=== PATIENT | female | born 1995 | race Caucasian/White ===

== ENCOUNTER 2016-08-20 16:00 | Emergency (ER) | payer OTHER ==
[~2016-08-20] VITALS: Ht 152.4 cm; Wt 70.5 kg
[2016-08-20 16:03] VITALS: BP 116/77; PULSE 80; RESP 16; TEMP 98; O2SAT 97
--- NOTE | 2016-08-20 16:56 | PD ---
Physical Exam Time Seen by Provider: 16:55 Narrative 21 year old female with history of anxiety presents to ED for evaluation of R foot pain. Pt fridge fell onto foot. Foot is now numb. Unable to walk on foot. No other symptoms. Data Data Last Documented VS Vital Signs Date Time Temp Pulse Resp B/P Pulse Ox O2 Delivery O2 Flow Rate FiO2 08/20/16 16:03 98.0 80 16 116/77 97 Room Air Orders Foot, Complete ([id number]) (08/20/16 ) Crutches (08/20/16 18:39) Splint Or Brace Apply/Monitor (08/20/16 18:39) MDM Medical Record Reviewed: Yes Supervised Visit with FREDY: No Narrative Course Xray ordered in triage. Foot neurovascularly intact. Scripts Ibuprofen 800 Mg [id number] Mg PO Q6HR PRN (PAIN) #30 TAB Ref 0 Prov:Nicole Schaefer 08/20/16 Condition: Stable Isabel Marie Aug 20, 2016 16:56
--- NOTE | 2016-08-20 17:27 | RADRPT ---
EXAM DATE/TIME: 08/20/2016 17:08 [facility] COMPARISON: No previous studies available for comparison. INDICATIONS : Right foot numbness after dropping heavy object on foot. MEDICAL HISTORY : None. SURGICAL HISTORY : None. ENCOUNTER: Initial ACUITY: 4 - 6 days PAIN SCORE: 0/10 LOCATION: Right middle foot. FINDINGS: Three view examination of the right foot demonstrates no soft tissue swelling, dislocation, or fractu re. The tarsal bones appear intact. The interphalangeal and metatarsophalangeal joints are intact. The calcaneus is intact. Bony mineralization is normal. CONCLUSION: No acute fracture or dislocation. Gordo Garcia MD on August 20, 2016 at 17:25 Board Certified Radiologist. This report was verified electronically.
[2016-08-20] MEDS ORDERED: IBUP800T23 PO (18:41)
--- NOTE | 2016-08-20 18:43 | PD ---
HPI Chief Complaint: Injury Time Seen by Provider: 18:40 Travel History International Travel<30 days: No Contact w/Intl Traveler<30days: No Traveled to known affect area: No History of Present Illness HPI 21-year-old female presents to the emergency Department with complaint of not being able to feel the toes on her right foot after a small for age fall on her foot approximately 1:30 today. She denies pain to the foot and says that maybe she doesn't have pain she can't feel it. She has not taken any medications or treatments to relieve her symptoms. She has been ambulatory, walking on the heel of her foot. Denies decreased range of motion, decreased strength to affected extremity. Denies fever, chills, nausea, vomiting. Allergies to sulfa. History of asthma. No other modifying factors or associated signs and symptoms. PFSH Past Medical History Asthma: Yes ?: Not Social History Tobacco Use: No Allergies-Medications (Allergen,Severity, Reaction): Coded Allergies: Sulfa (Verified Allergy, Unknown, HIVES, 08/20/16) Reported Meds & Prescriptions Reported Meds & Active Scripts Active Ibuprofen 800 Mg Tab 800 Mg PO Q6HR PRN Reported Lexapro (Escitalopram Oxalate) 20 Mg Tab 20 Mg PO DAILY Clonazepam 1 Mg Tab 1 Mg PO TID Review of Systems Except as stated in HPI: all other systems reviewed are Neg Physical Exam Narrative GENERAL: Well-nourished, well-developed female patient, in no acute distress SKIN: Warm and dry. HEAD: Atraumatic. Normocephalic. EYES: Pupils equal and round. No scleral icterus. No injection or drainage. ENT: Mucosa pink and moist. Airway patent. NECK: Trachea midline. CARDIOVASCULAR: Regular rate. RESPIRATORY: No accessory muscle use. GASTROINTESTINAL: Rounded. MUSCULOSKELETAL: Right foot without edema or obvious deformity; there is a bruise noted below the second, third, fourth, fifth toes; the patient is unable to feel light sensation or pain to all 5 toes; less than 3 second cap refill; distal pulses palpable; toes are cool to touch and pink; without cyanosis. Sensation to the dorsal aspect of the foot just above the line of the bruise. No obvious deformities. No clubbing. No cyanosis. No edema. NEUROLOGICAL: Awake and alert. Oriented 3. No obvious cranial nerve deficits. Motor grossly within normal limits. Normal speech. PSYCHIATRIC: Appropriate mood and affect; insight and judgment normal. Data Data Last Documented VS Vital Signs Date Time Temp Pulse Resp B/P Pulse Ox O2 Delivery O2 Flow Rate FiO2 08/20/16 16:03 98.0 80 16 116/77 97 Room Air Orders Foot, Complete ([id number]) (08/20/16 ) Crutches (08/20/16 18:39) Splint Or Brace Apply/Monitor (08/20/16 18:39) MDM Medical Decision Making Medical Screen Exam Complete: Yes Emergency Medical Condition: Yes Medical Record Reviewed: Yes Differential Diagnosis Facture, dislocation, contusion, sprain Narrative Course 21-year-old female with right foot injury after dropping a small fridge on it at approximately 1:30 today. Right foot x-ray concludes no fracture or dislocation and no acute findings. On examination the patient is unable to feel light sensation or painful sensation to all 5 toes. Toes are pink and cool to touch, with good cap refill less than 3 seconds; without cyanosis, 2+ pedal pulses. 1849: Callout to podiatry placed. 1907: I spoke with Dr. Lopez, podiatry and he recommended for the patient to use her foot with the sensation loss and to follow-up with him in his office within two weeks. Crutches provided for support. Saturnino bandage applied. I instructed the patient to continue to use her foot for support, per Dr. Lopez , and she verbalized understanding and agreement to plan of care. Ibuprofen prescribed for home. Patient is medically cleared and stable for discharge. Discussed reasons to return to the emergency department. Instructed patient to follow up with primary care provider. Patient agrees with treatment plan. The patients vital signs are stable and the patient is stable for outpatient follow- up and treatment. Patient discharged home, stable and in no acute distress. Diagnosis Primary Impression: Contusion of right foot Qualified Code: S90.31XA - Contusion of right foot, initial encounter Referrals: Anatoliy Lopez DPP[facility] Primary Care Physician Patient Instructions: Contusion in Adults (ED), General Instructions Departure Forms: Tests/Procedures, Work Release Enter return to work date: Aug 21, 2016 Additional Instructions: Ibuprofen or Tylenol as directed and as needed for pain and inflammation Rest, ice, compress, and elevate extremity to decrease pain and inflammation Saturnino bandage for support Crutches for support Avoid aggravating activity; increase activity as tolerated Follow-up with primary care provider Follow-up with podiatry, Dr. Lopez Return to the emergency department immediately with worsening symptoms Med/Other Pt SpecificInfo: Prescription(s) given Scripts Ibuprofen 800 Mg Few128 Mg PO Q6HR PRN (PAIN) #30 TAB Ref 0 Prov:Nicole Schaefer 08/20/16 Disposition: 01 DISCHARGE HOME Condition: Stable Nicole Schaefer Aug 20, 2016 18:43
[2016-08-20] MEDS ORDERED: CLON1TAB PO (19:21)
[2016-08-20] MEDS ORDERED: LEXA20TA PO (19:21)
== END 2016-08-20 19:35 | disposition home or self-care (01) ==
LOC: NEPB 16:00
DX: S90.31XA Contusion of right foot, initial encounter (principal); J45.909 Unspecified asthma, uncomplicated; R20.0 Anesthesia of skin; W22.8XXA Striking against or struck by other objects, initial encounter; Y93.89 Activity, other specified; Y92.89 Other specified places as the place of occurrence of the external cause; Y99.8 Other external cause status
CPT/HCPCS: 73630; 99284; E0113

== ENCOUNTER 2016-08-27 10:30 | Emergency (ER) | payer OTHER ==
[~2016-08-27] VITALS: Ht 152.4 cm; Wt 73.0 kg
[~2016-08-27 10:30] MED LIST: CLON1TAB PO; IBUP800T23 PO; LEXA20TA PO
[2016-08-27 10:38] VITALS: BP 121/85; PULSE 75; RESP 16; TEMP 98.2; O2SAT 99
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
[2016-08-27] MEDS ORDERED: TETANUS/DIPHTHERIA TOXOID ADULT 0.5 ML VIAL IM ONE (11:00)
== END 2016-08-27 11:13 | disposition home or self-care (01) ==
LOC: PHEFT 10:30
DX: S51.802A Unspecified open wound of left forearm, initial encounter (principal); Z23 Encounter for immunization; W50.3XXA Accidental bite by another person, initial encounter; Y93.9 Activity, unspecified; Y92.9 Unspecified place or not applicable; Y99.9 Unspecified external cause status
CPT/HCPCS: 90471; 90714

== ENCOUNTER 2016-09-21 14:51 | Emergency (ER) | payer OTHER ==
[~2016-09-21] VITALS: Ht 152.4 cm; Wt 71.8 kg
[~2016-09-21 14:51] MED LIST changes: -IBUP800T23 PO
[2016-09-21 15:10] VITALS: BP 115/77; PULSE 65; RESP 16; TEMP 98.5; O2SAT 99
[2016-09-21 15:44] LABS: BLOOD, URINE NEG (NEG); GLUCOSE,URINE NEG (NEG); KETONE, URINE NEG (NEG); NITRITE,URINE NEG (NEG)
[2016-09-21 15:50] LABS: METHOD OF COLLECTION CLEAN CATCH; URINE COLOR STRAW (YELLW/STRAW)
[2016-09-21 15:51] LABS: COMMENT (UR) CULT NOT INDICATED; CULTURE IF INDICATED CULT NOT INDICATED; SQUAMOUS EPITHELIAL CELL URINE 0-5 /hpf (0-5)
[2016-09-21] MEDS ORDERED: SODIUM CHLOR 0.9% 1000 ML INJ 1,000 ML IV SCH (16:08)
[2016-09-21] MEDS ORDERED: SODIUM CHLORIDE 0.9% FLUSH 5 ML FLUSH IVF PRN (16:15)
[2016-09-21] MEDS ORDERED: KETOROLAC TROMETHAMINE 30 MG/ML (IVP) VIAL IVP ONE (16:15)
[2016-09-21] MEDS ORDERED: ONDANSETRON HCL 4 MG/2 ML VIAL IVP ONE (16:15)
--- NOTE | 2016-09-21 16:15 | PD ---
HPI Chief Complaint: Flank/Kidney Pain Time Seen by Provider: 16:12 Travel History International Travel<30 days: No Contact w/Intl Traveler<30days: No Traveled to known affect area: No History of Present Illness HPI 21-year-old female presents to the emergency department for evaluation of low back pain that started 1 week ago. She states it now radiates to the left abdomen. She reports associated nausea, but no vomiting. She states she has been taking Tylenol at home with no improvement. She denies any fevers. She does report associated dizziness. Patient denies any urinary symptoms. She denies any history of abdominal pain. She denies any previous abdominal surgeries. Patient does not believe she is , but is not completely sure. She denies any abnormal vaginal discharge. She reports one sexual partner for the past 6 years. Patient denies a history of kidney stones. She does state that the back pain is worse with movement, but not the abdominal pain. PFSH Past Medical History Asthma: Yes Anxiety: Yes Depression: Yes Diminished Hearing: No Respiratory: Yes (asthma) Influenza Vaccination: No ?: Not LMP: 08/08/16, IRREGULAR Past Surgical History Eye Surgery: Yes (BILATERAL, 3 YEARS OF AGE) Social History Alcohol Use: No Tobacco Use: No Substance Use: No Allergies-Medications (Allergen,Severity, Reaction): Coded Allergies: Sulfa (Verified Allergy, Unknown, HIVES, 09/21/16) Reported Meds & Prescriptions Reported Meds & Active Scripts Active Reported Lexapro (Escitalopram Oxalate) 20 Mg Tab 20 Mg PO DAILY Clonazepam 1 Mg Tab 1 Mg PO TID Review of Systems Except as stated in HPI: all other systems reviewed are Neg Physical Exam Narrative GENERAL: Well-developed well-nourished female patient, ambulatory. Afebrile. SKIN: Warm and dry. HEAD: Normocephalic. Atraumatic. EYES: No scleral icterus. No injection or drainage. NECK: Supple, trachea midline. No JVD or lymphadenopathy. CARDIOVASCULAR: Regular rate and rhythm without murmurs, gallops, or rubs. RESPIRATORY: Breath sounds equal bilaterally. No accessory muscle use. Lungs sounds are clear to auscultation. GASTROINTESTINAL: Abdomen soft and nondistended. Patient has tenderness over left lower quadrant, mild tenderness over suprapubic and right lower quadrants. MUSCULOSKELETAL: No cyanosis, or edema. BACK: Nontender without obvious deformity. No CVA tenderness. No midline spinal tenderness. She has tenderness over bilateral lumbar paraspinal musculature. GENITOURINARY: Normal external genitalia without lesions or erythema. Vaginal vault without blood or drainage. Cervical os was closed with minimal white drainage. Patient did report cervical motion tenderness. Uterus nontender and nonenlarged. Bilateral adnexa nontender without masses. Pelvic exam was done with nurse at bedside. Data Data Last Documented VS Vital Signs Date Time Temp Pulse Resp B/P Pulse Ox O2 Delivery O2 Flow Rate FiO2 09/21/16 17:41 16 09/21/16 16:41 98 Room Air 09/21/16 16:41 62 109/69 09/21/16 15:10 98.5 Orders Urinalysis - C+S If Indicated (09/21/16 15:01) Ed Urine Pregnancytest Poc (09/21/16 15:01) Complete Blood Count With Diff (09/21/16 16:08) Comprehensive Metabolic Panel (09/21/16 16:08) Lipase (09/21/16 16:08) Ct Abd/Pel W/O Iv Contrast (09/21/16 16:08) Iv Access Insert/Monitor (09/21/16 16:08) Ecg Monitoring (09/21/16 16:08) Oximetry (09/21/16 16:08) Ondansetron Inj (Zofran Inj) (09/21/16 16:15) Sodium Chlor 0.9% 1000 Ml Inj (Ns 1000 M (09/21/16 16:08) Sodium Chloride 0.9% Flush (Ns Flush) (09/21/16 16:15) Ketorolac Inj (Toradol Inj) (09/21/16 16:15) Gc And Chlamydia Pcr (09/21/16 16:08) Wet Prep Profile (09/21/16 16:08) Azithromycin Powd Pack (Zithromax Powd P (09/21/16 17:45) Ceftriaxone Inj (Rocephin Inj) (09/21/16 17:45) Lidocaine 1% Inj (50 Ml) (Xylocaine 1% I (09/21/16 17:45) Labs Laboratory Tests Test 09/21/16 09/21/16 09/21/16 15:15 16:35 17:35 Urine Collection Type CLEAN CATCH Urine Color STRAW Urine Turbidity CLEAR Urine pH 6.0 Urine Specific [place] 1.003 Urine Protein NEG mg/dL Urine Glucose (UA) NEG mg/dL Urine Ketones NEG mg/dL Urine Occult Blood NEG Urine Nitrite NEG Urine Bilirubin NEG Urine Leukocyte Esterase NEG Urine Squamous Epithelial 0-5 /hpf Cells Microscopic Urinalysis Comment CULT NOT INDICATED White Blood Count 8.5 TH/MM3 Red Blood Count 4.72 MIL/MM3 Hemoglobin 13.9 GM/DL Hematocrit 39.9 % Mean Corpuscular Volume 84.6 FL Mean Corpuscular Hemoglobin 29.4 PG Mean Corpuscular Hemoglobin 34.8 % Concent Red Cell Distribution Width 12.6 % Platelet Count 241 TH/MM3 Mean Platelet Volume 8.3 FL Neutrophils (%) (Auto) 64.5 % Lymphocytes (%) (Auto) 27.4 % Monocytes (%) (Auto) 5.9 % Eosinophils (%) (Auto) 1.8 % Basophils (%) (Auto) 0.4 % Neutrophils # (Auto) 5.5 TH/MM3 Lymphocytes # (Auto) 2.3 TH/MM3 Monocytes # (Auto) 0.5 TH/MM3 Eosinophils # (Auto) 0.2 TH/MM3 Basophils # (Auto) 0.0 TH/MM3 CBC Comment DIFF FINAL Differential Comment Sodium Level 140 MEQ/L Potassium Level 3.8 MEQ/L Chloride Level 102 MEQ/L Carbon Dioxide Level 30.2 MEQ/L Anion Gap 8 MEQ/L Blood Urea Nitrogen 6 MG/DL Creatinine 0.67 MG/DL Estimat Glomerular Filtration 110 ML/MIN Rate Random Glucose 82 MG/DL Calcium Level 9.6 MG/DL Total Bilirubin 0.5 MG/DL Aspartate Amino Transf 14 U/L (AST/SGOT) Alanine Aminotransferase 24 U/L (ALT/SGPT) Alkaline Phosphatase 78 U/L Total Protein 7.4 GM/DL Albumin 3.7 GM/DL Lipase 90 U/L Clue Cells (Wet Prep) NONE SEEN Vaginal Trichomonas (Wet Prep) NONE SEEN Vaginal Yeast (Wet Prep) NONE SEEN MDM Medical Decision Making Medical Screen Exam Complete: Yes Emergency Medical Condition: Yes Medical Record Reviewed: Yes Interpretation(s) Last Impressions Abdomen/Pelvis CT 09/21/16 1608 Signed Impressions: Service Date/Time: Wednesday, September 21, 2016 16:17 - CONCLUSION: 1. No acute findings. Specifically no evidence for obstructive uropathy. Aric Barajas MD Differential Diagnosis Muscle strain versus muscle spasm versus nephrolithiasis versus diverticulitis versus PID versus UTI versus Narrative Course 21-year-old female presents to the emergency department treatment for evaluation of low back pain for 1 week that radiates to the left abdomen. UA and urine are done in triage. UA shows no evidence of acute infection. ED urine test is negative. CBC, CMP, lipase, wet prep, swab for GC/chlamydia are ordered and pending. CBC is unremarkable. CMP shows no acute abnormality. Lipase is 90. CT abdomen /pelvis shows no acute findings. Pelvic exam did show some cervical motion tenderness. I discussed prophylactic treatment for chlamydia and gonorrhea patient agrees. Patient is given Rocephin 250 mg IM, azithromycin 1 g by mouth. Wet prep is negative for clue cells, Trichomonas, yeast. Patient will be discharged with a prescription for ibuprofen and Robaxin for possible muscle strain to the low back. She is encouraged to follow up with her primary care physician. Workup today is reassuring. Patient started to return for any acute worsening of symptoms. She is agreeable. The patient was discharged in stable condition with instructions, including return instructions and follow up instructions. Diagnosis Primary Impression: Abdominal pain Qualified Code: R10.30 - Lower abdominal pain Additional Impression: Muscle strain Referrals: Primary Care Physician call for appointment Patient Instructions: Abdominal Pain (ED), General Instructions, Muscle Strain (ED) Additional Instructions: Take ibuprofen as directed as needed with food for pain. Take Robaxin as directed as needed. Follow-up with your primary care physician. Return to the emergency department for any acute worsening of symptoms. Med/Other Pt SpecificInfo: Prescription(s) given Scripts Methocarbamol (Robaxin)750 Mg [id number] Mg PO TID PRN (MUSCLE SPASM) #21 TAB Ref 0 Prov:Saba Kennedy 09/21/16 Ibuprofen 800 Mg [id number] Mg PO TID PRN (PAIN SCALE 1 TO 10) #21 TAB Ref 0 Prov:Saba Kennedy 09/21/16 Disposition: 01 DISCHARGE HOME Condition: Stable Saba Kennedy Sep 21, 2016 16:15
[2016-09-21 16:41] VITALS: BP 109/69; PULSE 62; RESP 16; O2SAT 98
--- NOTE | 2016-09-21 16:47 | RADHPO ---
EXAM DATE/TIME: 09/21/2016 16:17 [facility] COMPARISON: No previous studies available for comparison. INDICATIONS : Left flank pain for one week. ORAL CONTRAST: No oral contrast ingested. RADIATION DOSE: 14.03 CTDIvol (mGy) MEDICAL HISTORY : None SURGICAL HISTORY : None. ENCOUNTER: Initial ACUITY: 1 week PAIN SCALE: 7/10 LOCATION: Left flank TECHNIQUE: Volumetric scanning of the abdomen and pelvis was performed. Using automated exposure control and ad justment of the mA and/or kV according to patient size, radiation dose was kept as low as reasonably achievable to obtain optimal diagnostic quality images. FINDINGS: Lung bases are clear. No acute findings in the liver, spleen, adrenals, kidneys or pancreas. Specific ally no renal or ureteral calculi or obstructive uropathy. No bowel obstruction. No free air or free fluid. No adenopathy. No acute bony abnormalities. CONCLUSION: 1. No acute findings. Specifically no evidence for obstructive uropathy. Aric Barajas MD on September 21, 2016 at 16:41 Board Certified Radiologist. This report was verified electronically.
[2016-09-21 17:00] LABS: AUTOMATED NEUTROPHIL # 5.5 TH/MM3 (1.8-7.7); BASOPHIL % 0.4 % (0.0-2.0); EOSINOPHIL # 0.2 TH/MM3 (0-0.4); EOSINOPHIL % 1.8 % (0.0-4.0); HEMATOCRIT 39.9 % (35.0-46.0); HEMO FLAGS DIFF FINAL; LYMPH % 27.4 % (9.0-44.0); LYMPHOCYTE # 2.3 TH/MM3 (1.0-4.8); MEAN CELL VOLUME 84.6 FL (80.0-100.0); MEAN CORPUSCULAR HEMOGLOBIN 29.4 PG (27.0-34.0); MEAN CORPUSCULAR HGB CONC 34.8 % (32.0-36.0); MONO % 5.9 % (0.0-8.0); NEUT % 64.5 % (16.0-70.0); PLATELET COUNT 241 TH/MM3 (150-450); RED BLOOD COUNT 4.72 MIL/MM3 (4.00-5.30); RED CELL DISTRIBUTION WIDTH 12.6 % (11.6-17.2); WHITE BLOOD COUNT 8.5 TH/MM3 (4.0-11.0)
[2016-09-21 17:09] LABS: CHLORIDE 102 MEQ/L (98-107); POTASSIUM 3.8 MEQ/L (3.5-5.1); SODIUM (NA) 140 MEQ/L (136-145)
[2016-09-21 17:13] LABS: ANION GAP 8 MEQ/L (5-15); BICARBONATE 30.2 MEQ/L (21.0-32.0); BLOOD UREA NITROGEN 6 MG/DL (7-18)
[2016-09-21 17:16] LABS: ALT (GPT) 24 U/L (10-53); AST (GOT) 14 U/L (15-37); GLOMERULAR FILTRATION RATE 110 ML/MIN (>89)
[2016-09-21 17:18] LABS: TOTAL BILIRUBIN ADULT 0.5 MG/DL (0.2-1.0)
[2016-09-21 17:19] LABS: ALKALINE PHOSPHATASE 78 U/L (45-117)
[2016-09-21 17:41] VITALS: RESP 16
[2016-09-21] MEDS ORDERED: cefTRIAXone 250 MG VIAL IM ONE (17:45)
[2016-09-21] MEDS ORDERED: AZITHROMYCIN PWD FOR SUSP 1 GM PACKET PO ONE (17:45)
[2016-09-21] MEDS ORDERED: LIDOCAINE HCL 1% 50 ML VIAL IM ONE (17:45)
[2016-09-21] MEDS ORDERED: METHOCARBAMOL 500 MG TAB PO ONE (18:00)
[2016-09-21] MEDS ORDERED: IBUP800T23 PO (18:01)
[2016-09-21] MEDS ORDERED: ROBA750T PO (18:01)
[2016-09-21 18:34] VITALS: BP 113/74
[2016-09-21 22:01] LABS: CHLAMYDIA PCR NOT DETECTED (NOT DETECT); NEISSERIA PCR NOT DETECTED (NOT DETECT)
== END 2016-09-21 18:45 | disposition home or self-care (01) ==
LOC: PHED 14:51
DX: R10.30 Lower abdominal pain, unspecified (principal); M54.5 Low back pain; R42 Dizziness and giddiness
CPT/HCPCS: 74176; 80053; 81001; 83690; 84703; 85025; 87210; 87491; 87591; 96361; 96372; 96374; 96375; 99284; J0696; J1885; J2405; J7030

== ENCOUNTER 2016-11-10 22:49 | Emergency (ER) | payer OTHER ==
[~2016-11-10] VITALS: Ht 157.5 cm; Wt 74.4 kg
[~2016-11-10 22:49] MED LIST changes: +IBUP800T23 PO; +ROBA750T PO
[2016-11-10 22:58] VITALS: BP 117/84; PULSE 71; RESP 16; TEMP 98.2; O2SAT 97
[2016-11-10] MEDS ORDERED: clonazePAM 1 MG TAB PO ONE (23:15)
--- NOTE | 2016-11-10 23:20 | PD ---
HPI Chief Complaint: Anxiety Time Seen by Provider: 23:05 Travel History International Travel<30 days: No Contact w/Intl Traveler<30days: No History of Present Illness HPI Patient is a 21-year-old female with history of anxiety, presents to emergency room with complaints of anxiety attack. Patient reports that she takes Klonopin 1 mg 3 times a day for anxiety, reports that she felt sick last night as well as morning and threw up her last dose of her Klonopin. Patient reports that she has since run out of her Klonopin, she did call her physician and has a prescription at [facility] pharmacy pending - reports that the pharmacy closed 10 minutes after she showed up to [place] picker her script. She did call her primary care doctor who told her to come to the emergency room for a dose of Klonopin tonight. Patient reports that she will go to the pharmacy tomorrow morning to [place]anish [place] picker her prescription. Patient reports that her anxiety is some which are previous episodes, reports "i just need a dose of my medication." Denies fevers or chills, denies chest pain or shortness of breath. Denies suicidal or homicidal ideations. Patient denies nausea or vomiting or abdominal pain at this time. PFSH Past Medical History Asthma: Yes Anxiety: Yes Depression: Yes Diminished Hearing: No Respiratory: Yes (asthma) Past Surgical History Eye Surgery: Yes (BILATERAL, 3 YEARS OF AGE) Social History Alcohol Use: No Tobacco Use: No Substance Use: No Allergies-Medications (Allergen,Severity, Reaction): Coded Allergies: Sulfa (Verified Allergy, Unknown, HIVES, 09/21/16) Reported Meds & Prescriptions Reported Meds & Active Scripts Active Robaxin (Methocarbamol) 750 Mg Tab 750 Mg PO TID PRN Ibuprofen 800 Mg Tab 800 Mg PO TID PRN Reported Lexapro (Escitalopram Oxalate) 20 Mg Tab 20 Mg PO DAILY Clonazepam 1 Mg Tab 1 Mg PO TID Review of Systems General / Constitutional: No: Fever Eyes: No: Visual changes HENT: No: Headaches Cardiovascular: No: Chest Pain or Discomfort Respiratory: No: Shortness of Breath Gastrointestinal: No: Abdominal Pain Genitourinary: No: Dysuria Musculoskeletal: No: Pain Skin: No Rash Neurologic: No: Weakness Psychiatric: Positive: Anxiety, No: Depression Endocrine: No: Polydipsia Hematologic/Lymphatic: No: Easy Bruising Physical Exam Narrative GENERAL: No acute distress, nontoxic SKIN: Focused skin assessment warm/dry. HEAD: Atraumatic. Normocephalic. EYES: Pupils equal and round. No scleral icterus. No injection or drainage. ENT: No nasal bleeding or discharge. Mucous membranes pink and moist. NECK: Trachea midline. No JVD. CARDIOVASCULAR: Regular rate and rhythm. No murmur appreciated. RESPIRATORY: No accessory muscle use. Clear to auscultation. Breath sounds equal bilaterally. GASTROINTESTINAL: Abdomen soft, non-tender, nondistended. MUSCULOSKELETAL: No obvious deformities. No clubbing. No cyanosis. No edema. NEUROLOGICAL: Awake and alert. No obvious cranial nerve deficits. Motor grossly within normal limits. Normal speech. PSYCHIATRIC: Patient anxious on exam; insight and judgment normal. Data Data Last Documented VS Vital Signs Date Time Temp Pulse Resp B/P Pulse Ox O2 Delivery O2 Flow Rate FiO2 11/10/16 22:58 98.2 71 16 117/84 97 Orders Clonazepam (Klonopin) (11/10/16 23:15) [facility] Medical Decision Making Medical Screen Exam Complete: Yes Emergency Medical Condition: Yes Interpretation(s) Vital Signs Date Time Temp Pulse Resp B/P Pulse Ox O2 Delivery O2 Flow Rate FiO2 11/10/16 22:58 98.2 71 16 117/84 97 Differential Diagnosis Medication refill, anxiety reaction Narrative Course 21-year-old female who presents to emergency room for a dose of her anxiety medication. Patient reports that she last took her Klonopin 1 mg this morning, reports that she felt nauseous and ended up vomiting up this dose, reports that she has run out of her prescription and her pharmacy close for the night and she was unable to spanish [place] picker her prescription. Patient denies nausea or vomiting tonight, reports that she was able to eat her dinner tonight and drink fluids. Patient here with a friend at bedside. Patient requesting one dose of Klonopin 1 mg, she'll spanish [place] picker her prescription tomorrow. Patient reports that her symptoms are normal for her anxiety attack. Patient denies suicidal or homicidal ideations, no other complaints. Diagnosis Primary Impression: Anxiety Patient Instructions: General Instructions Additional Instructions: Please follow-up with primary care doctor Return to the emergency room as needed Please spanish moss picker your script from [facility] pharmacy tomorrow and take your medications as prescribed Disposition: 01 DISCHARGE HOME Condition: Stable Alisha Mark DO Nov 10, 2016 23:20
[2016-11-11] VITALS: BP 108/72
== END 2016-11-11 00:05 | disposition home or self-care (01) ==
LOC: PHED 22:49
DX: F41.9 Anxiety disorder, unspecified (principal); J45.909 Unspecified asthma, uncomplicated; F32.9 Major depressive disorder, single episode, unspecified; Z91.14 Patient's other noncompliance with medication regimen
CPT/HCPCS: 99283

== ENCOUNTER 2016-12-02 22:34 | Emergency (ER) | payer OTHER ==
[~2016-12-02] VITALS: Ht 157.5 cm; Wt 75.1 kg
[~2016-12-02 22:34] MED LIST changes: -IBUP800T23 PO; -ROBA750T PO
[2016-12-02 22:39] VITALS: BP 116/80; PULSE 70; RESP 20; TEMP 97.6; O2SAT 99
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
[2016-12-02] MEDS ORDERED: IBUPROFEN 800 MG TAB PO ONE (23:15)
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
--- NOTE | 2016-12-03 00:37 | RADHPO ---
EXAM DATE/TIME: 12/02/2016 23:31 [facility] COMPARISON: No previous studies available for comparison. INDICATIONS : Trauma. Neck pain. RADIATION DOSE: 26.60 CTDIvol (mGy) MEDICAL HISTORY : None SURGICAL HISTORY : None. ENCOUNTER: Initial ACUITY: 1 day PAIN SCALE: 10/10 LOCATION: Bilateral neck TECHNIQUE: Volumetric scanning of the cervical spine was performed. Multiplanar reconstructions i n the sagittal, coronal and oblique axial planes were performed. Using automated exposure control a nd adjustment of the mA and/or kV according to patient size, radiation dose was kept as low as reason ably achievable to obtain optimal diagnostic quality images. FINDINGS: Sagittal images demonstrate normal vertebral body alignment and curvature. The odontoid is intact. Th e occipital condyles and lateral masses of C1 are intact. Axial images were performed from C2-C3 to C 7-T1. C2-C3: No significant abnormalities identified. C3-C4: No significant abnormalities identified. C4-C5: No significant abnormalities identified. C5-C6: No significant abnormalities identified. C6-C7: No significant abnormalities identified. C7-T1: No significant abnormalities identified. CONCLUSION: Unremarkable examination of the cervical spine. No evidence of fracture. Bharath Sorto MD on December 03, 2016 at 0:13 Board Certified Radiologist. This report was verified electronically.
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
[2016-12-03 01:02] VITALS: BP 101/63; PULSE 65; O2SAT 97
== END 2016-12-03 01:03 | disposition home or self-care (01) ==
LOC: PHED 22:34
DX: S00.03XA Contusion of scalp, initial encounter (principal); S16.1XXA Strain of muscle, fascia and tendon at neck level, initial encounter; R51 Headache; H92.01 Otalgia, right ear; M25.511 Pain in right shoulder; J45.909 Unspecified asthma, uncomplicated; W20.8XXA Other cause of strike by thrown, projected or falling object, initial encounter; Y92.009 Unspecified place in unspecified non-institutional (private) residence as the place of occurrence of the external cause
CPT/HCPCS: 70450; 72125; 73030; 84703; 99284; L0150

== ENCOUNTER 2017-01-04 01:34 | Emergency (ER) | payer OTHER ==
[2017-01-04 01:36] VITALS: BP 130/74; PULSE 91; RESP 16; TEMP 98; O2SAT 98
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
[2017-01-04] MEDS ORDERED: SODIUM CHLORIDE 0.9% FLUSH 10 ML FLUSH IV FLUSH PRN (02:15)
[2017-01-04 02:26] LABS: AUTOMATED NEUTROPHIL # 4.4 TH/MM3 (1.8-7.7); BASOPHIL # 0.1 TH/MM3 (0-0.2); BASOPHIL % 0.7 % (0.0-2.0); EOSINOPHIL # 0.2 TH/MM3 (0-0.4); EOSINOPHIL % 2.3 % (0.0-4.0); HEMATOCRIT 37.7 % (35.0-46.0); HEMO FLAGS DIFF FINAL; LYMPH % 33.6 % (9.0-44.0); LYMPHOCYTE # 2.7 TH/MM3 (1.0-4.8); MEAN CELL VOLUME 82.6 FL (80.0-100.0); MEAN CORPUSCULAR HEMOGLOBIN 29.4 PG (27.0-34.0); MEAN CORPUSCULAR HGB CONC 35.6 % (32.0-36.0); MONO % 8.3 % (0.0-8.0); NEUT % 55.1 % (16.0-70.0); PLATELET COUNT 233 TH/MM3 (150-450); RED BLOOD COUNT 4.57 MIL/MM3 (4.00-5.30); RED CELL DISTRIBUTION WIDTH 14.1 % (11.6-17.2); WHITE BLOOD COUNT 8.1 TH/MM3 (4.0-11.0)
[2017-01-04 02:35] LABS: APTT (PATIENT) 27.7 SEC (24.3-30.1); INTERNATIONAL NORMALIZED RATIO 0.9 RATIO; PROTHROMBIN TIME - PATIENT 10.4 SEC (9.8-11.6)
[2017-01-04 02:48] LABS: ALT (GPT) 23 U/L (10-53); ANION GAP 7 MEQ/L (5-15); AST (GOT) 13 U/L (15-37); BICARBONATE 28.4 MEQ/L (21.0-32.0); BLOOD UREA NITROGEN 8 MG/DL (7-18); CHLORIDE 105 MEQ/L (98-107); GLOMERULAR FILTRATION RATE 101 ML/MIN (>89); POTASSIUM 3.1 MEQ/L (3.5-5.1); SODIUM (NA) 140 MEQ/L (136-145)
[2017-01-04 02:51] LABS: ALKALINE PHOSPHATASE 90 U/L (45-117); BETA HCG QUANT LESS THAN 1 MIU/ML (0-5); TOTAL BILIRUBIN ADULT 0.4 MG/DL (0.2-1.0)
[2017-01-04 03:51] VITALS: O2SAT 100
[2017-01-04] MEDS ORDERED: IOHEXOL 350 MG/ML 10 ML VIAL (for RAD DIAG) IV ONE (05:22)
--- NOTE | 2017-01-04 06:25 | RADRPT ---
EXAM DATE/TIME: 01/04/2017 05:14 [facility] COMPARISON: No previous studies available for comparison. INDICATIONS : Right knee numbness. IV CONTRAST: 100 cc Omnipaque 350 (iohexol) IV RADIATION DOSE: 2.24 CTDIvol (mGy) MEDICAL HISTORY : Asthma. SURGICAL HISTORY : None. ENCOUNTER: Initial ACUITY: 1 day PAIN SCALE: 7/10 LOCATION: Right knee TECHNIQUE: Volumetric scanning was performed using a multi-row detector CT scanner. The data was post processed with a variety of visualization algorithms including full volume maximum intensity projection, multi -planar sliding thin slab reformation, curved planar reformation, and surface rendering techniques. Using automated exposure control and adjustment of the mA and/or kV according to patient size, radiat ion dose was kept as low as reasonably achievable to obtain optimal diagnostic quality images. FINDINGS: ABDOMINAL AORTA: The lumen is smooth without significant narrowing or aneurysmal dilation. The proximal celiac and de la cruz perior mesenteric arteries are patent and normal in diameter. There are solitary renal arteries bila terally without gross abnormality. BIFURCATION: Normal. RIGHT PELVIS: The right common iliac, internal iliac, and external iliac vessels are patent without luminal irregul arity. LEFT PELVIS: The left common iliac, internal iliac, and external iliac vessels are patent and without luminal irre gularity. RIGHT THIGH: The superficial femoral and profunda vessels are patent without luminal irregularity. LEFT THIGH: The superficial femoral and profunda vessels are patent without luminal irregularity. RIGHT KNEE: The distal femoral and popliteal arteries are patent without luminal irregularity. LEFT KNEE: The distal femoral and popliteal arteries are patent without luminal irregularity. RIGHT LEG: The trifurcation is intact. LEFT LEG: The trifurcation is intact. CONCLUSION: Normal examination. Godfrey Soliman MD on January 04, 2017 at 6:21 Board Certified Radiologist. This report was verified electronically.
[2017-01-04] MEDS ORDERED: POTASSIUM CHLORIDE 20 MEQ CONTROLLED RELEASE TAB PO ONE (06:45)
[2017-01-04 07:00] VITALS: BP 95/65; PULSE 68; RESP 18; TEMP 98.1; O2SAT 100
== END 2017-01-04 07:01 | disposition home or self-care (01) ==
LOC: NEPE 01:34
DX: M25.561 Pain in right knee (principal); R20.9 Unspecified disturbances of skin sensation; E87.6 Hypokalemia; Z87.828 Personal history of other (healed) physical injury and trauma
CPT/HCPCS: 75635; 80053; 84702; 85025; 85610; 85730; 99285; Q9967

== ENCOUNTER 2017-01-10 20:36 | Emergency (ER) | payer OTHER ==
[2017-01-10 20:37] VITALS: BP 117/87; PULSE 83; RESP 16; TEMP 98.7; O2SAT 96
[2017-01-10] MEDS ORDERED: SODIUM CHLORIDE 0.9% FLUSH 10 ML FLUSH IVF PRN (21:45)
[2017-01-10 22:02] VITALS: O2SAT 99
[2017-01-10 22:02] LABS: BASOPHIL # 0.1 TH/MM3 (0-0.2); BASOPHIL % 0.6 % (0.0-2.0); EOSINOPHIL # 0.2 TH/MM3 (0-0.4); EOSINOPHIL % 1.9 % (0.0-4.0); HEMATOCRIT 42.6 % (35.0-46.0); LYMPH % 30.4 % (9.0-44.0); LYMPHOCYTE # 2.6 TH/MM3 (1.0-4.8); MEAN CELL VOLUME 83.8 FL (80.0-100.0); MEAN CORPUSCULAR HEMOGLOBIN 28.4 PG (27.0-34.0); MEAN CORPUSCULAR HGB CONC 33.9 % (32.0-36.0); MONO % 8.4 % (0.0-8.0); NEUT % 58.7 % (16.0-70.0); PLATELET COUNT 190 TH/MM3 (150-450); RED BLOOD COUNT 5.09 MIL/MM3 (4.00-5.30); RED CELL DISTRIBUTION WIDTH 14.1 % (11.6-17.2); WHITE BLOOD COUNT 8.4 TH/MM3 (4.0-11.0)
--- NOTE | 2017-01-10 22:11 | PD ---
HPI Chief Complaint: Seizure Time Seen by Provider: 21:08 Travel History International Travel<30 days: No Contact w/Intl Traveler<30days: No Traveled to known affect area: No History of Present Illness HPI Patient 21-year-old female with a history of bipolar disorder presents emergency department for evaluation of new onset seizures. Family members have arrived with the patient and the patient states that she's had several events prior to arrival one in the car on the way here and then 1 in the waiting room. Patient states she thinks she shakes for a moment or 2 and then awakes with her fianc over her with word of encouragement. Her fianc is here and states that her episodes are very short lasting less than 10 seconds each and he when I described what a postictal phase is he does not endorse postictal phase. Patient did have an episode in the exam room prior to my evaluation and was informed by nursing and affect it appears to be pseudoseizures that she had no postictal phase and was immediately talking following shaking motion. Patient denies any head injury abdominal pain nausea vomiting diarrhea. She does not take any lithium. This is never happened to her before. PFSH Past Medical History Asthma: Yes Bipolar Disorder: Yes Anxiety: Yes Depression: Yes Diminished Hearing: No Respiratory: Yes (asthma) ?: Unknown : 2 Para: 0 Miscarriage: 2 Past Surgical History Eye Surgery: Yes (BILATERAL, 3 YEARS OF AGE) Social History Alcohol Use: No Tobacco Use: No (quit years ago) Substance Use: No Allergies-Medications (Allergen,Severity, Reaction): Coded Allergies: Sulfa (Verified Allergy, Unknown, HIVES, 01/10/17) Reported Meds & Prescriptions Reported Meds & Active Scripts Active Reported Lexapro (Escitalopram Oxalate) 20 Mg Tab 20 Mg PO DAILY Clonazepam 1 Mg Tab 1 Mg PO TID Review of Systems Except as stated in HPI: all other systems reviewed are Neg Physical Exam Narrative GENERAL: Well-developed well-nourished no apparent distress SKIN: Focused skin assessment warm/dry. HEAD: Atraumatic. Normocephalic. EYES: Pupils equal and round. No scleral icterus. No injection or drainage. ENT: No nasal bleeding or discharge. Mucous membranes pink and moist. NECK: Trachea midline. No JVD. CARDIOVASCULAR: Regular rate and rhythm. No murmur appreciated. RESPIRATORY: No accessory muscle use. Clear to auscultation. Breath sounds equal bilaterally. GASTROINTESTINAL: Abdomen soft, non-tender, nondistended. Hepatic and splenic margins not palpable. MUSCULOSKELETAL: No obvious deformities. No clubbing. No cyanosis. No edema. NEUROLOGICAL: Awake and alert. Cranial nerves II through XII are grossly intact and nonfocal, 5 out of 5 strength in all 4 extremity's. PSYCHIATRIC: Appropriate mood and affect; insight and judgment normal. Data Data Last Documented VS Vital Signs Date Time Temp Pulse Resp B/P Pulse Ox O2 Delivery O2 Flow Rate FiO2 01/10/17 22:02 99 Room Air 01/10/17 20:37 98.7 83 16 117/87 Orders Basic Metabolic Panel (Bmp) (01/10/17 21:34) Complete Blood Count With Diff (01/10/17 21:34) Ecg Monitoring (01/10/17 21:34) Iv Access Insert/Monitor (01/10/17 21:34) Oximetry (01/10/17 21:34) Oxygen Administration (01/10/17 21:34) Sodium Chloride 0.9% Flush (Ns Flush) (01/10/17 21:45) Ct Brain W/O Iv Contrast(Rout) (01/10/17 ) Ed Urine Pregnancytest Poc (01/10/17 22:13) Lorazepam Inj (Ativan Inj) (01/10/17 22:30) Labs Laboratory Tests Test 01/10/17 21:40 White Blood Count 8.4 TH/MM3 Red Blood Count 5.09 MIL/MM3 Hemoglobin 14.4 GM/DL Hematocrit 42.6 % Mean Corpuscular Volume 83.8 FL Mean Corpuscular Hemoglobin 28.4 PG Mean Corpuscular Hemoglobin 33.9 % Concent Red Cell Distribution Width 14.1 % Platelet Count 190 TH/MM3 Mean Platelet Volume 9.1 FL Neutrophils (%) (Auto) 58.7 % Lymphocytes (%) (Auto) 30.4 % Monocytes (%) (Auto) 8.4 % Eosinophils (%) (Auto) 1.9 % Basophils (%) (Auto) 0.6 % Neutrophils # (Auto) 5.0 TH/MM3 Lymphocytes # (Auto) 2.6 TH/MM3 Monocytes # (Auto) 0.7 TH/MM3 Eosinophils # (Auto) 0.2 TH/MM3 Basophils # (Auto) 0.1 TH/MM3 CBC Comment DIFF FINAL Differential Comment Sodium Level 141 MEQ/L Potassium Level 3.3 MEQ/L Chloride Level 106 MEQ/L Carbon Dioxide Level 25.8 MEQ/L Anion Gap 9 MEQ/L Blood Urea Nitrogen 6 MG/DL Creatinine 0.65 MG/DL Estimat Glomerular Filtration 114 ML/MIN Rate Random Glucose 81 MG/DL Calcium Level 8.9 MG/DL MDM Medical Decision Making Medical Screen Exam Complete: Yes Emergency Medical Condition: Yes Differential Diagnosis Pseudoseizures, seizures, electrolyte abnormality, intracranial abnormality unlikely. Narrative Course 21-year-old female presents emergency department for evaluation of seizure-like activity. During workup I did have an opportunity to witness one of these episodes, the patient from the mouth and had a very slow twitch all 4 extremity event lasting only for a few seconds and was able to talk during. She had no postictal phase is crying for short-term afterwards. Initial workup including electrolytes CT of her head are negative. My impression is that the patient is having events consistent with pseudoseizure activity. I discussed this impression with the patient and the family and recommended psychiatric follow-up. They are amenable. Psychiatrically she denies any suicidal homicidal ideation at this time she is stable for discharge. Discussed return to ED criteria should follow-up with neurologist at her own discretion. Diagnosis Primary Impression: Pseudoseizures Referrals: Craig Green PhD Disposition: 01 DISCHARGE HOME Condition: Stable Dewayne Butler MD Jan 10, 2017 22:11
[2017-01-10 22:12] LABS: HEMO FLAGS DIFF FINAL
[2017-01-10 22:26] LABS: BICARBONATE 25.8 MEQ/L (21.0-32.0); POTASSIUM 3.3 MEQ/L (3.5-5.1)
[2017-01-10] MEDS ORDERED: LORazepam 2 MG/ML VIAL IV PUSH ONE (22:30)
--- NOTE | 2017-01-10 23:00 | RADRPT ---
EXAM DATE/TIME: 01/10/2017 22:39 [facility] COMPARISON: CT BRAIN W/O CONTRAST, December 02, 2016, 23:31. INDICATIONS : Possible seizure. RADIATION DOSE: 34.94 CTDIvol (mGy) MEDICAL HISTORY : Asthma. SURGICAL HISTORY : None. ENCOUNTER: Initial ACUITY: 1 day PAIN SCALE: 4/10 LOCATION: cranial TECHNIQUE: Multiple contiguous axial images were obtained of the head. Using automated exposure control and adj ustment of the mA and/or kV according to patient size, radiation dose was kept as low as reasonably a chievable to obtain optimal diagnostic quality images. FINDINGS: CEREBRUM: The ventricles are normal for age. No evidence of midline shift, mass lesion, hemorrhage or acute in farction. No extra-axial fluid collections are seen. POSTERIOR FOSSA: The cerebellum and brainstem are intact. The 4th ventricle is midline. The cerebellopontine angle i s unremarkable. EXTRACRANIAL: The visualized portion of the orbits is intact. SKULL: The calvaria is intact. No evidence of skull fracture. CONCLUSION: Normal examination for a patient of this age. No significant change has occurred. Aric Barajas MD on January 10, 2017 at 22:57 Board Certified Radiologist. This report was verified electronically.
== END 2017-01-10 23:53 | disposition home or self-care (01) ==
LOC: NEPE 20:36
DX: F44.5 Conversion disorder with seizures or convulsions (principal); F31.9 Bipolar disorder, unspecified; J45.909 Unspecified asthma, uncomplicated
CPT/HCPCS: 70450; 80048; 84703; 85025; 99284

== ENCOUNTER 2017-01-14 00:05 | Observation (INO) | payer OTHER ==
[~2017-01-14] VITALS: Ht 170.2 cm; Wt 88.0 kg
[2017-01-14] VITALS (7 sets, daily range): BP systolic 106–128; BP diastolic 65–81; PULSE 58–86; RESP 12–20; TEMP 96.6–97.8; O2SAT 87–99
[2017-01-14] MEDS ORDERED: FOSPHENYTOIN SODIUM 500 MG PE/10 ML VIAL IM ONE (01:15)
[2017-01-14] MEDS ORDERED: ONDANSETRON HCL 4 MG/2 ML VIAL IV ONE (01:15)
[2017-01-14 01:26] LABS: AUTOMATED NEUTROPHIL # 4.2 TH/MM3 (1.8-7.7); BASOPHIL # 0.1 TH/MM3 (0-0.2); BASOPHIL % 0.7 % (0.0-2.0); EOSINOPHIL # 0.2 TH/MM3 (0-0.4); EOSINOPHIL % 2.6 % (0.0-4.0); HEMATOCRIT 39.1 % (35.0-46.0); HEMO FLAGS DIFF FINAL; LYMPHOCYTE # 2.8 TH/MM3 (1.0-4.8); MEAN CELL VOLUME 83.6 FL (80.0-100.0); MEAN CORPUSCULAR HEMOGLOBIN 28.8 PG (27.0-34.0); MEAN CORPUSCULAR HGB CONC 34.4 % (32.0-36.0); MONO % 6.8 % (0.0-8.0); NEUT % 53.9 % (16.0-70.0); PLATELET COUNT 216 TH/MM3 (150-450); RED BLOOD COUNT 4.68 MIL/MM3 (4.00-5.30); RED CELL DISTRIBUTION WIDTH 14.2 % (11.6-17.2); WHITE BLOOD COUNT 7.7 TH/MM3 (4.0-11.0)
[2017-01-14 01:54] LABS: ALKALINE PHOSPHATASE 92 U/L (45-117); ALT (GPT) 23 U/L (10-53); BETA HCG QUANT LESS THAN 1 MIU/ML (0-5); TOTAL BILIRUBIN ADULT 0.3 MG/DL (0.2-1.0)
[2017-01-14 02:03] LABS: ANION GAP 6 MEQ/L (5-15); AST (GOT) 22 U/L (15-37); BICARBONATE 26.6 MEQ/L (21.0-32.0); BLOOD UREA NITROGEN 8 MG/DL (7-18); CHLORIDE 107 MEQ/L (98-107); GLOMERULAR FILTRATION RATE 100 ML/MIN (>89); POTASSIUM 3.6 MEQ/L (3.5-5.1); SODIUM (NA) 140 MEQ/L (136-145)
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
[2017-01-14] MEDS ORDERED: FOSPHENYTOIN INJ 1,500 MGPE in SODIUM CHLORIDE 0.9% INJ 100 ML IV ONE (02:45)
[2017-01-14] MEDS ORDERED: LORazepam 2 MG/ML VIAL IV PRN (03:30)
[2017-01-14] MEDS ORDERED: SODIUM CHLORIDE 0.9% FLUSH 10 ML FLUSH IV FLUSH PRN (03:30)
[2017-01-14] MEDS ORDERED: ONDANSETRON HCL 4 MG/2 ML VIAL IV PRN (03:30)
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
[2017-01-14 04:52] LABS: AMPHETAMINE, URINE NEG (NEG); BARBITURATES, URINE NEG (NEG); COCAINE, URINE NEG (NEG)
[2017-01-14] MEDS: HEPARIN SODIUM - SQ 10,000 UNITS/ML VIAL SQ SCH ×3 (06:00→22:00)
[2017-01-14] MEDS: ESCITALOPRAM OXALATE 20 MG TAB PO SCH (08:02)
[2017-01-14] MEDS: clonazePAM 1 MG TAB PO SCH ×3 (08:02→18:04)
[2017-01-14] MEDS: SODIUM CHLORIDE 0.9% FLUSH 10 ML FLUSH IV FLUSH SCH ×2 (08:03→21:00)
--- NOTE | 2017-01-14 08:10 | HHI.FPPN ---
Subjective Subjective Patient seen and examined with the resident team. Case reviewed and discussed Please refer to resident H&P for further details regarding HPI, ROS, PMH, SurgHx , FH and SocHx. In summary, patient is a 21yoF with a history of recent diagnosis of pseudoseizure presenting with recurrent shaking episodes. No prior history of seizures 8-10 episodes per day She does have a history of depression and possibly bipolar disorder. She is seen in her hospital room with significant other in the room. Upon entering, patient keeps her eyes closed and would not open them to speak with medical team. EEG techs at bedside and had just finished EEG [facility] Objective Objective Laboratory Tests - Abnormals Test 01/14/17 01:06 Random Glucose 114 MG/DL Vital Signs 01/14/17 01/14/17 00:07 04:08 Temp 97.8 Pulse 86 65 Resp 20 12 B/P 128/81 111/70 Pulse Ox 87 96 Physical exam GENERAL: wdwn female, resting in bed, eyes closed SKIN: Warm and dry. No rashes, ecchymoses HEAD: Normocephalic. AT EYES: No scleral icterus. No injection or drainage. No nystagmus. PERRL ENT: No buccal mucosal damage, no evidence of tongue biting NECK: Supple, trachea midline. No JVD or lymphadenopathy. CARDIOVASCULAR: Regular rate and rhythm without murmurs, gallops, or rubs. RESPIRATORY: Breath sounds equal bilaterally. No accessory muscle use. GASTROINTESTINAL: Abdomen soft, non-tender, nondistended. MUSCULOSKELETAL: No cyanosis, or edema. NO calf tenderness BACK: Nontender without obvious deformity. No CVA tenderness. NEURO: Opens eyes after sternal rub and sits up in bed. Communicative. Normal speech. CN grossly in tact. Assessment Assessment Seizure vs pseudoseizure Depression Anxiety Bipolar Mild hyperglycemia PLAN PLAN EEG Prolactin pending Neuro consult Consider psych consult Seizure precautions Monitor closely with neuro checks Ativan prn seizures Resume home meds as appropriate Heparin for DVT proph Patient seen and examined. Case reviewed and discussed Agree with plan of care as discussed with me and documented in the resident note. Alexandra Grossman MD Jan 14, 2017 08:10
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
--- NOTE | 2017-01-14 16:05 | RADRPT ---
EXAM DATE/TIME: 01/14/2017 12:31 [facility] COMPARISON: No previous studies available for comparison. INDICATIONS : Seizures. MEDICAL HISTORY : Asthma. SURGICAL HISTORY : Eye surgery as child. ENCOUNTER: Initial ACUITY: 2 day PAIN SCORE: 0/10 LOCATION: head TECHNIQUE: Multiplanar, multisequence MRI of the brain was performed without contrast. FINDINGS: CEREBRUM: The ventricles are normal for age. No evidence of midline shift, mass lesion, hemorrhage or acute in farction. No extraaxial fluid collections are seen. The pituitary gland and suprasellar cistern are normal in configuration. WHITE MATTER: No significant signal abnormalities are seen in the white matter. POSTERIOR FOSSA: The cerebellum and brainstem are intact. The 4th ventricle is midline. The cerebellopontine angle is unremarkable. The cerebellar tonsils are normal in position. DIFFUSION IMAGING: No focal areas of restricted diffusion are seen. No evidence of acute infarction. EXTRACRANIAL: The visualized portions of the orbits and paranasal sinuses are unremarkable. CONCLUSION: Negative MRI of the brain. Correlation with EEG would be of benefit. Sean Davis MD FACR on January 14, 2017 at 15:55 Board Certified Radiologist. This report was verified electronically.
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
[2017-01-14] MEDS ORDERED: PILL SPLITTER OTHER PRN (18:15)
[2017-01-14] MEDS: levETIRAcetam 500 MG TAB PO SCH (18:43)
[2017-01-15] VITALS: BP 112/66; PULSE 62; RESP 16; TEMP 96.2; O2SAT 97
[2017-01-15 04:00] VITALS: BP 99/55; PULSE 58; RESP 16; TEMP 96.5; O2SAT 96
[2017-01-15] MEDS: HEPARIN SODIUM - SQ 10,000 UNITS/ML VIAL SQ SCH ×2 (05:13→13:26)
[2017-01-15] MEDS: levETIRAcetam 500 MG TAB PO SCH (05:30)
[2017-01-15 06:17] VITALS: BP 106/63; PULSE 60; RESP 19; TEMP 96.8; O2SAT 98
[2017-01-15 07:19] VITALS: BP 92/55; PULSE 61; RESP 20; TEMP 98.5; O2SAT 95
[2017-01-15] MEDS: ESCITALOPRAM OXALATE 20 MG TAB PO SCH (08:44)
[2017-01-15] MEDS: clonazePAM 1 MG TAB PO SCH ×2 (08:44→13:26)
[2017-01-15] MEDS: SODIUM CHLORIDE 0.9% FLUSH 10 ML FLUSH IV FLUSH SCH (08:45)
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
[2017-01-15 09:40] LABS: AUTOMATED NEUTROPHIL # 3.2 TH/MM3 (1.8-7.7); BASOPHIL % 0.6 % (0.0-2.0); EOSINOPHIL # 0.2 TH/MM3 (0-0.4); EOSINOPHIL % 3.3 % (0.0-4.0); HEMATOCRIT 38.4 % (35.0-46.0); HEMO FLAGS DIFF FINAL; LYMPH % 34.1 % (9.0-44.0); MEAN CORPUSCULAR HEMOGLOBIN 29.5 PG (27.0-34.0); MEAN CORPUSCULAR HGB CONC 35.5 % (32.0-36.0); MONO % 7.5 % (0.0-8.0); NEUT % 54.5 % (16.0-70.0); PLATELET COUNT 190 TH/MM3 (150-450); RED BLOOD COUNT 4.63 MIL/MM3 (4.00-5.30); RED CELL DISTRIBUTION WIDTH 14.1 % (11.6-17.2); WHITE BLOOD COUNT 5.8 TH/MM3 (4.0-11.0)
[2017-01-15 10:04] LABS: POTASSIUM 3.6 MEQ/L (3.5-5.1)
[2017-01-15] MEDS ORDERED: LEVE500 PO (10:14)
--- NOTE | 2017-01-15 10:15 | HHI.DCPOC ---
Discharge Care Plan Diagnosis: (1) Bipolar 1 disorder (2) Pseudoseizures (3) Spell of altered consciousness Goals to Promote Your Health * To prevent worsening of your condition and complications * To maintain your health at the optimal level Directions to Meet Your Goals Take your medications as prescribed Follow your dietary instruction Follow activity as directed Keep your appointments as scheduled Take your immunizations and boosters as scheduled If your symptoms worsen call your PCP, if no PCP go to Urgent Care Center or Emergency Room Smoking is Dangerous to Your Health. Avoid second hand smoke Call the 24-hour hour crisis hotline for domestic abuse at Cassius Fletcher MD R2 Jan 15, 2017 10:15
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
[2017-01-15 10:55] VITALS: BP 117/61; PULSE 84; RESP 22; O2SAT 98
[2017-01-15 14:07] VITALS: PULSE 63
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
--- NOTE | 2017-01-15 17:35 | MG ---
cc: MARGIE SAUNDERS MD Lab No: [id number] Date: 01/15/17 Age: 21 Sex: F Race: REFERRING PHYSICIAN Dr. Zheng. In Room F63 with hyperventilation, photic stimulation. Good effort to hyperventilation. Awake. The patient had two of her episodes during the EEG, whole body shaking, spitting at the mouth and making noises. MRI 01/10/17 was normal. Apparent prior EEG was unremarkable. A 21-year-old woman with episodes of convulsions lasting seconds to minutes with some postictal confusion, history of anxiety, bipolar disorder, weakness in the legs, asthma MEDICATIONS Keppra, Lexapro, Klonopin DESCRIPTION OF RECORD There is overall alpha rhythm of 8 Hz, 20 microvolts. Some mouth movement artifact. She is asked to relax, does not correlate with any epileptic activity. Photic stimulation causes a driving response and then whole body shaking. She is making noise out of her mouth, spitting, gross artifact. I do not appreciate any epileptic activity. Starts deep breathing. She is then being called by her first name and not responding. Episode stops at epoch 53. As she gets a sternal rub, more muscle artifact throughout and then she wakes up. EEG normalizes. There is no more significant artifact, normal alpha rhythm. There is no post event attenuation. Hyperventilation started at epoch 105 with a normal background again. IMPRESSION This is a grossly normal EEG. The event during the photic stimulatory phase does not look epileptic in nature, just artifactual. However, clinical correlation. Margie Saunders MD DF/ /3:09 PM /5:32 PM
== END 2017-01-15 15:25 | disposition home or self-care (01) ==
LOC: NEPC 00:05 → NEDA 03:05 → UNDOADMOB 03:05 → NEPFCDU 06:53 → NEDA 06:53 → OBSVTOIN 16:20 → INTOOBSV 16:20 → NEPFCDU 01-15 11:31 → NEDA 01-15 11:31 → UNDODISOB 01-15 15:25 → UNDODISIN 01-15 15:25
PROVIDERS: ADMIT Family Medicine; ATTEND Family Medicine
DX: F68.10 Factitious disorder imposed on self, unspecified (principal); F43.21 Adjustment disorder with depressed mood; F31.9 Bipolar disorder, unspecified; F41.9 Anxiety disorder, unspecified; R73.9 Hyperglycemia, unspecified
CPT/HCPCS: 70551; 80048; 80053; 80307; 84146; 84702; 85025; 95819; 96372; 96374; 96375; 97161; 99285; G0378; G8987; G8988; G8989; J1644; J2405; Q2009

== ENCOUNTER 2017-01-29 14:33 | Emergency (ER) | payer OTHER ==
[~2017-01-29] VITALS: Ht 154.9 cm; Wt 75.0 kg
[~2017-01-29 14:33] MED LIST changes: +LEVE500 PO
[2017-01-29 14:45] VITALS: BP 125/76; PULSE 58; RESP 16; TEMP 98.4; O2SAT 100
[2017-01-29] MEDS ORDERED: clonazePAM 1 MG TAB PO ONE (14:45)
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
[2017-01-29] MEDS ORDERED: DOXY1CAP74 PO (14:57)
[2017-01-29] MEDS ORDERED: CEPH500C PO (14:57)
[2017-01-29 15:24] LABS: AUTOMATED NEUTROPHIL # 5.2 TH/MM3 (1.8-7.7); BASOPHIL % 0.4 % (0.0-2.0); EOSINOPHIL # 0.1 TH/MM3 (0-0.4); EOSINOPHIL % 1.2 % (0.0-4.0); HEMATOCRIT 38.7 % (35.0-46.0); HEMO FLAGS DIFF FINAL; LYMPH % 21.2 % (9.0-44.0); LYMPHOCYTE # 1.6 TH/MM3 (1.0-4.8); MEAN CELL VOLUME 82.8 FL (80.0-100.0); MEAN CORPUSCULAR HGB CONC 35.1 % (32.0-36.0); MONO % 7.2 % (0.0-8.0); PLATELET COUNT 223 TH/MM3 (150-450); RED BLOOD COUNT 4.67 MIL/MM3 (4.00-5.30); RED CELL DISTRIBUTION WIDTH 13.8 % (11.6-17.2); WHITE BLOOD COUNT 7.4 TH/MM3 (4.0-11.0)
== END 2017-01-29 16:27 | disposition home or self-care (01) ==
LOC: NEPD 14:33
DX: R56.9 Unspecified convulsions (principal); F41.9 Anxiety disorder, unspecified; F31.9 Bipolar disorder, unspecified; Z79.899 Other long term (current) drug therapy
CPT/HCPCS: 80048; 85025; 99283

== ENCOUNTER 2017-02-05 12:54 | Emergency (ER) | payer OTHER ==
[~2017-02-05] VITALS: Ht 154.9 cm; Wt 72.0 kg
[~2017-02-05 12:54] MED LIST changes: +CEPH500C PO; +DOXY1CAP74 PO; -LEVE500 PO
[2017-02-05 12:57] VITALS: BP 148/100; PULSE 84; RESP 24; TEMP 97.9; O2SAT 97
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
[2017-02-05 13:56] LABS: AUTOMATED NEUTROPHIL # 4.5 TH/MM3 (1.8-7.7); BASOPHIL % 0.6 % (0.0-2.0); EOSINOPHIL # 0.1 TH/MM3 (0-0.4); EOSINOPHIL % 1.5 % (0.0-4.0); HEMATOCRIT 39.5 % (35.0-46.0); HEMO FLAGS DIFF FINAL; LYMPH % 27.6 % (9.0-44.0); LYMPHOCYTE # 1.9 TH/MM3 (1.0-4.8); MEAN CELL VOLUME 83.7 FL (80.0-100.0); MEAN CORPUSCULAR HGB CONC 34.6 % (32.0-36.0); MONO % 6.4 % (0.0-8.0); NEUT % 63.9 % (16.0-70.0); PLATELET COUNT 245 TH/MM3 (150-450); RED BLOOD COUNT 4.72 MIL/MM3 (4.00-5.30); RED CELL DISTRIBUTION WIDTH 14.1 % (11.6-17.2)
[2017-02-05 14:07] LABS: AMPHETAMINE, URINE NEG (NEG); BARBITURATES, URINE NEG (NEG); COCAINE, URINE NEG (NEG)
[2017-02-05 14:14] LABS: ANION GAP 7 MEQ/L (5-15); BICARBONATE 27.2 MEQ/L (21.0-32.0); BLOOD UREA NITROGEN 7 MG/DL (7-18); CHLORIDE 106 MEQ/L (98-107); GLOMERULAR FILTRATION RATE 74 ML/MIN (>89); POTASSIUM 3.6 MEQ/L (3.5-5.1); SODIUM (NA) 140 MEQ/L (136-145)
[2017-02-05 14:19] LABS: ACETAMINOPHEN LESS THAN 2.0 MCG/ML (10.0-30.0)
[2017-02-05 22:10] VITALS: BP 92/59; PULSE 63; RESP 17; O2SAT 95
[2017-02-06 02:29] VITALS: BP 109/57; PULSE 57; RESP 20; O2SAT 99
[2017-02-06 06:52] VITALS: BP 104/67; PULSE 64; RESP 18; O2SAT 96
--- NOTE | 2017-02-06 09:07 | PD ---
History of Present Illness Chief Complaint: Psychiatric Symptoms Time Seen by Provider: 09:05 Travel History International Travel<30 Days: No Contact w/Intl Traveler<30days: No Known affected area: No Legal Status Legal Status: James Act James Act Signed By: History of Present Illness: History of Present Illness HPI 21 year-old female with history of anxiety, depression, pseudoseizures, presents to emergency department today voluntarily for psychiatric evaluation. Ed documentation is reviewed and included in this report " She is accompanied by her boyfriend. Patient states that her boyfriend stopped her from suicide last night. She had her also medication that she was getting ready to take when he stopped her. She states she did not take any medication. She is here today, tearful, stating that she needs help. " Seen. Chart reviewed. No previous contact with [facility] [place] [facility] psychiatry dept.. Patient was monitored in J pod and presented no suicidality. She is alert, oriented, calm and engaging. speech is clear and logical. There is no nelson or hypomania. There is no psychosis. She denies any suicidal ideation, intent or plan. She states that she was feeling overwhelmed yesterday while she was filling her pill box and that she accidently dropped all her pills on the floor. She admits to feeling overwhelmed but deneis that she had any intention of overdosing on her medication. [place] is [place] in [place] and sees Dr. Thomas on a monthly basis as well as reporting that she is medication compliant. She is future oriented and states " I want to live. I want to finish my degree and become a teacher and I want to have kids". PFSH Past Medical History Asthma: Yes Blood Disorders: No Bipolar Disorder: Yes Anxiety: Yes Depression: No Cancer: No Cardiovascular Problems: No Diminished Hearing: No Endocrine: No Genitourinary: No Immune Disorder: No Musculoskeletal: No Neurologic: Yes (SEIZURE ACTIVITY) Psychiatric: Yes (BIPOLAR) Reproductive: No Respiratory: No Seizures: Yes ?: Not : 2 Para: 0 Miscarriage: 2 Past Surgical History Eye Surgery: Yes (BILATERAL, 3 YEARS OF AGE) Psychiatric History Psychiatric History Hx Psychiatric Treatment: BIPOLAR DISORDER/DEPRESSION No previous suicide attempt. History of Inpatient Treatment: No Guns or firearms in home: No Social History Single female that lives with her fiancee. 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 Hx Alcohol Use: No Hx Tobacco Use: No Hx Substance Use: No Allergies-Medications (Allergen,Severity, Reaction): Coded Allergies: Ativan (Verified Allergy, Mild, BURNING SENSATION ENTIRE BODY, 02/05/17) Sulfa (Verified Allergy, Unknown, HIVES, 01/14/17) Reported Meds & Prescriptions Reported Meds & Active Scripts Active Reported Lexapro (Escitalopram Oxalate) 20 Mg Tab 20 Mg PO DAILY Clonazepam 1 Mg Tab 1 Mg PO TID Review of Systems Except as stated in HPI: all other systems reviewed are Neg Exam Alert: Yes [place]: Person (ox4) Mood: Calm Affect: Appropriate Speech: Clear, Logical Eye Contact: Normal Memory Intact: Comment (No impairmetn) Hallucinations: Other (Negative) Delusions: No Suicidal: Ideation (denies any) Homicidal: Ideation (deneis any) Insight/Judgement Fair. Not impaired. MDM Medical Decision Making Medical Record Reviewed: Yes Assessment/Plan 21 year old female with hx of depression and anxiety who is under a voluntary status. She has not demonstrated any suicidality or behavioral concerns. She does not meet BA criteria, is future oriented and has adequate protective factors. She will continue with established outpatient treatment. Orders Complete Blood Count With Diff (02/05/17 13:21) Basic Metabolic Panel (Bmp) (02/05/17 13:21) Ed Urine Pregnancytest Poc (02/05/17 13:21) Psych Screen (02/05/17 13:21) Drug Screen, Random Urine (02/05/17 13:21) Alcohol (Ethanol) (02/05/17 13:21) Salicylates (Aspirin) (02/05/17 13:21) Tylenol (Acetaminophen) (02/05/17 13:21) Diet Regular Basic (02/06/17 Breakfast) Results Vital Signs Date Time Temp Pulse Resp B/P Pulse Ox O2 Delivery O2 Flow Rate FiO2 02/06/17 06:52 64 18 104/67 96 Room Air 02/06/17 02:29 57 20 109/57 99 Room Air 02/05/17 22:10 63 17 92/59 95 Room Air 02/05/17 12:57 97.9 84 24 148/100 97 Room Air Laboratory Tests Test 02/05/17 02/05/17 13:20 13:30 Urine Opiates Screen NEG Urine Barbiturates Screen NEG Urine Amphetamines Screen NEG Urine Benzodiazepines Screen POS Urine Cocaine Screen NEG Urine Cannabinoids Screen NEG White Blood Count 7.0 Red Blood Count 4.72 Hemoglobin 13.7 Hematocrit 39.5 Mean Corpuscular Volume 83.7 Mean Corpuscular Hemoglobin 29.0 Mean Corpuscular Hemoglobin 34.6 Concent Red Cell Distribution Width 14.1 Platelet Count 245 Mean Platelet Volume 8.3 Neutrophils (%) (Auto) 63.9 Lymphocytes (%) (Auto) 27.6 Monocytes (%) (Auto) 6.4 Eosinophils (%) (Auto) 1.5 Basophils (%) (Auto) 0.6 Neutrophils # (Auto) 4.5 Lymphocytes # (Auto) 1.9 Monocytes # (Auto) 0.5 Eosinophils # (Auto) 0.1 Basophils # (Auto) 0.0 CBC Comment DIFF FINAL Differential Comment Sodium Level 140 Potassium Level 3.6 Chloride Level 106 Carbon Dioxide Level 27.2 Anion Gap 7 Blood Urea Nitrogen 7 Creatinine 0.94 Estimat Glomerular Filtration 74 Rate Random Glucose 101 Calcium Level 8.8 Salicylates Level LESS THAN 1.7 Acetaminophen Level LESS THAN 2.0 Ethyl Alcohol Level LESS THAN 3 Diagnosis Primary Impression: Adjustment disorder with depressed mood Psychiatrically Cleared: Yes Med/ Other Pt Specific Info: No Change to Meds Disposition: 01 DISCHARGE HOME Condition: Stable Rehana Johnson Feb 06, 2017 09:07
[2017-02-06 09:21] VITALS: BP 104/67
== END 2017-02-06 09:42 | disposition home or self-care (01) ==
LOC: NEPD 12:54 → NEPJ 02-06 09:42
DX: F43.21 Adjustment disorder with depressed mood (principal); Z79.899 Other long term (current) drug therapy
CPT/HCPCS: 80048; 80307; 84703; 85025; 99284

== ENCOUNTER 2017-03-23 19:09 | Emergency (ER) | payer OTHER ==
[~2017-03-23 19:09] MED LIST changes: -CEPH500C PO; -DOXY1CAP74 PO
[2017-03-23 19:11] VITALS: BP 136/80; PULSE 80; RESP 20; TEMP 98.4; O2SAT 98
[2017-03-23] MEDS ORDERED: CLON1TAB PO (19:50)
--- NOTE | 2017-03-23 19:51 | PD ---
HPI Chief Complaint: Anxiety Time Seen by Provider: 19:40 Travel History International Travel<30 days: No Contact w/Intl Traveler<30days: No Traveled to known affect area: No History of Present Illness HPI The patient is a 21-year-old female that comes in because of an anxiety attack. She is concerned because her doctor did not write her a prescription for clonazepam. She will see her doctor this coming . She states she will be fine if she can be covered until this . She is not suicidal and he denies any chest pain or shortness of breath. PFSH Past Medical History Asthma: Yes Blood Disorders: No Bipolar Disorder: Yes Anxiety: Yes Depression: No Cancer: No Cardiovascular Problems: No Diminished Hearing: No Endocrine: No Genitourinary: No Immune Disorder: No Musculoskeletal: No Neurologic: Yes (STRESS RELATED SEIZURE ACTIVITY) Psychiatric: Yes (BIPOLAR) Reproductive: No Respiratory: No Immunizations Current: Yes Seizures: Yes Influenza Vaccination: No ?: Not LMP: 11/13/16 : 2 Para: 0 Miscarriage: 2 Past Surgical History Eye Surgery: Yes (BILATERAL, 3 YEARS OF AGE) Social History Alcohol Use: No Tobacco Use: No Substance Use: No Allergies-Medications (Allergen,Severity, Reaction): Coded Allergies: lorazepam (Unverified Allergy, Mild, BURNING SENSATION ENTIRE BODY, ) Sulfa (Sulfonamide Antibiotics) (Unverified Allergy, Unknown, HIVES, ) Reported Meds & Prescriptions Reported Meds & Active Scripts Active Reported Lexapro (Escitalopram Oxalate) 20 Mg Tab 20 Mg PO DAILY Clonazepam 1 Mg Tab 1 Mg PO TID Review of Systems Except as stated in HPI: all other systems reviewed are Neg Physical Exam Narrative GENERAL: Well-nourished, well-developed patient who appears anxious but otherwise no apparent distress. Her vital signs are normal. SKIN: Focused skin assessment warm/dry. No needle tracks no wrist slash duque are present. HEAD: Normocephalic. EYES: No scleral icterus. No injection or drainage. NECK: Supple, trachea midline. No JVD or lymphadenopathy. CARDIOVASCULAR: Regular rate and rhythm without murmurs, gallops, or rubs. RESPIRATORY: Breath sounds equal bilaterally. No accessory muscle use. Lungs clear to auscultation bilaterally. GASTROINTESTINAL: Abdomen soft, non-tender, nondistended. MUSCULOSKELETAL: No cyanosis, or edema. BACK: Nontender without obvious deformity. No CVA tenderness. Data Data Last Documented VS Vital Signs Date Time Temp Pulse Resp B/P (MAP) Pulse Ox O2 Delivery O2 Flow Rate FiO2 03/23/17 19:11 98.4 80 20 136/80 (98) 98 MDM Medical Decision Making Medical Screen Exam Complete: Yes Emergency Medical Condition: Yes Medical Record Reviewed: Yes Differential Diagnosis Anxiety reaction, chronic anxiety, suicidal ideation-unlikely, drug seeking behavior Narrative Course The patient appears to have chronic anxiety. I will cover her clonazepam for one week, she will be able to see her primary care physician within this week. Diagnosis Primary Impression: Anxiety Additional Instructions: Make sure you do not miss the appointment with her primary care physician. Do not drink alcohol or drive on this medication. Med/Other Pt SpecificInfo: Prescription(s) given Scripts Clonazepam (Clonazepam) 1 Mg Tab 1 MG PO TID, #21 TAB 0 Refills Prov: Aj Tucker MD 03/23/17 Disposition: 01 DISCHARGE HOME Condition: Stable Aj Tucker MD Mar 23, 2017 19:51
== END 2017-03-23 20:05 | disposition home or self-care (01) ==
LOC: PHED 19:09
DX: F41.9 Anxiety disorder, unspecified (principal)
CPT/HCPCS: 99283

== ENCOUNTER 2017-11-26 08:02 | Emergency (ER) | payer OTHER ==
[~2017-11-26] VITALS: Ht 152.4 cm; Wt 62.9 kg
[2017-11-26 08:07] VITALS: BP 138/88; PULSE 85; RESP 16; TEMP 98.2; O2SAT 99
--- NOTE | 2017-11-26 08:49 | PD ---
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 She has noted some discharge. She is sexually active. Her test here is negative. He is not aware of fever or chills. He has a history of one which ended in miscarriage. sHe is concerned that she could have an STD. She is having some mild abdominal pain PFSH Past Medical History Asthma: Yes Blood Disorders: No Bipolar Disorder: Yes Anxiety: Yes Depression: No Cancer: No Cardiovascular Problems: No Diminished Hearing: No Endocrine: No Genitourinary: No Immune Disorder: No Musculoskeletal: No Neurologic: Yes (STRESS RELATED SEIZURE ACTIVITY) Psychiatric: Yes (BIPOLAR) Reproductive: No Respiratory: Yes (asthma as a child) Immunizations Current: Yes Seizures: Yes Influenza Vaccination: No ?: Not LMP: 11/02/17 : 2 Para: 0 Miscarriage: 2 Past Surgical History Eye Surgery: Yes (BILATERAL, 3 YEARS OF AGE) Other Surgery: No Social History Alcohol Use: No Tobacco Use: No Substance Use: No Allergies-Medications (Allergen,Severity, Reaction): Coded Allergies: lorazepam (Unverified Allergy, Mild, BURNING SENSATION ENTIRE BODY, ) Sulfa (Sulfonamide Antibiotics) (Unverified Allergy, Unknown, HIVES, ) Reported Meds & Prescriptions Reported Meds & Active Scripts Active Reported Lexapro (Escitalopram Oxalate) 20 Mg Tab 20 Mg PO DAILY Clonazepam 1 Mg Tab 0.5 Mg PO TID Review of Systems Except as stated in HPI: all other systems reviewed are Neg General / Constitutional: Positive: Fever Eyes: No: Diploplia HENT: No: Headaches Respiratory: No: Cough Gastrointestinal: No: Vomiting, Diarrhea Physical Exam Narrative GENERAL well-developed female SKIN: Focused skin assessment warm/dry. HEAD: Atraumatic. Normocephalic. EYES: Pupils equal and round. No scleral icterus. No injection or drainage. ENT: No nasal bleeding or discharge. Mucous membranes pink and moist. NECK: Trachea midline. No JVD. CARDIOVASCULAR: Regular rate and rhythm. No murmur appreciated. RESPIRATORY: No accessory muscle use. Clear to auscultation. Breath sounds equal bilaterally. GASTROINTESTINAL: Abdomen soft, non-tender, nondistended. Hepatic and splenic margins not palpable. INSURANCE SPECIALIST: There is some whitish discharge. There is some pain with movement of the cervix there are no adnexal masses MUSCULOSKELETAL: No obvious deformities. No clubbing. No cyanosis. No edema. NEUROLOGICAL: Awake and alert. No obvious cranial nerve deficits. Motor grossly within normal limits. Normal speech. PSYCHIATRIC: Appropriate mood and affect; insight and judgment normal. Data Data Last Documented VS Vital Signs Date Time Temp Pulse Resp B/P (MAP) Pulse Ox O2 Delivery O2 Flow Rate FiO2 11/26/17 08:07 98.2 85 16 138/88 (105) 99 Orders Orders Urinalysis - C+S If Indicated (11/26/17 08:41) Ed Urine Pregnancytest Poc (11/26/17 08:41) Gc And Chlamydia Pcr (11/26/17 08:48) Wet Prep Profile (11/26/17 08:48) Ceftriaxone Inj (Rocephin Inj) (11/26/17 09:00) Lidocaine 1% Inj (50 Ml) (Xylocaine 1% I (11/26/17 09:00) Azithromycin Powd Pack (Zithromax Powd P (11/26/17 09:00) Lidocaine 1% Inj (Xylocaine 1% Inj) (11/26/17 09:15) Lidocaine 1% Inj (Xylocaine 1% Inj) (11/26/17 09:15) Lidocaine 1% Inj (Xylocaine 1% Inj) (11/26/17 09:12) Urine Culture (11/26/17 08:30) Labs Laboratory Tests Test 11/26/17 08:30 11/26/17 09:00 Urine Color YELLOW Urine Turbidity SL CLOUDY Urine pH 5.5 Urine Specific [place] GREATER/EQUAL 1.030 Urine Protein TRACE mg/dL Urine Glucose (UA) NEG mg/dL Urine Ketones TRACE mg/dL Urine Occult Blood NEG Urine Nitrite NEG Urine Bilirubin NEG Urine Urobilinogen 1.0 MG/DL Urine Leukocyte Esterase TRACE Urine RBC 0-3 /hpf Urine WBC 3-5 /hpf Urine Squamous Epithelial Cells > 8 /hpf Urine Amorphous Sediment FEW Urine Bacteria MANY /hpf Microscopic Urinalysis Comment CULTURE INDICATED Clue Cells (Wet Prep) NONE SEEN Vaginal Trichomonas (Wet Prep) NONE SEEN Vaginal Yeast (Wet Prep) PRESENT MDM Medical Decision Making Medical Screen Exam Complete: Yes Emergency Medical Condition: Yes Medical Record Reviewed: Yes Differential Diagnosis Differential includes vaginitis, cervicitis Narrative Course Wet prep is positive for yeast. Patient will also be treated for cervicitis as there was some discharge and pain with movement of the cervix Diagnosis Primary Impression: Yeast vaginitis Scripts Clotrimazole Vaginal (Gyne-Lotrimin 3 Vaginal) 2% Cream 1 APPL VAGINAL HS for Fungal Infection, #21 GM 0 Refills Prov: Segundo Huynh MD 11/26/17 Disposition: 01 DISCHARGE HOME Condition: Stable Segundo Huynh MD Nov 26, 2017 08:49
[2017-11-26 08:59] LABS: BLOOD, URINE NEG (NEG); GLUCOSE,URINE NEG (NEG); KETONE, URINE TRACE mg/dL (NEG); NITRITE,URINE NEG (NEG); PH, URINE 5.5 (5.0-8.5); URINE COLOR YELLOW (YELLW/STRAW); URINE LEUKOCYTE ESTERASE TRACE (NEG)
[2017-11-26] MEDS ORDERED: cefTRIAXone 250 MG VIAL IM ONE (09:00)
[2017-11-26] MEDS ORDERED: AZITHROMYCIN PWD FOR SUSP 1 GM PACKET PO ONE (09:00)
[2017-11-26] MEDS ORDERED: LIDOCAINE HCL 1% 50 ML VIAL XX ONE (09:00)
[2017-11-26 09:10] LABS: BILIRUBIN, URINE NEG (NEG)
[2017-11-26] MEDS ORDERED: LIDOCAINE HCL 1% 20 ML VIAL ONE (09:12)
[2017-11-26 09:14] LABS: AMORPHOUS SEDIMENT, URINE FEW; BACTERIA, URINE MANY /hpf; RBC, URINE 0-3 /hpf (0-3); SQUAMOUS EPITHELIAL CELL URINE > 8 /hpf (0-5)
[2017-11-26] MEDS ORDERED: LIDOCAINE HCL 1% 30 ML VIAL OTHER ONE ×2 (09:15)
[2017-11-26] MEDS ORDERED: GYNE3CRE VAGINAL (09:54)
[2017-11-26 10:04] VITALS: BP 124/78; PULSE 72; RESP 16; O2SAT 99
== END 2017-11-26 10:06 | disposition home or self-care (01) ==
LOC: PHED 08:02
DX: B37.3 Candidiasis of vulva and vagina (principal); J45.909 Unspecified asthma, uncomplicated; F31.9 Bipolar disorder, unspecified; F41.9 Anxiety disorder, unspecified; Z86.69 Personal history of other diseases of the nervous system and sense organs; Z79.899 Other long term (current) drug therapy; Z88.2 Allergy status to sulfonamides; Z88.8 Allergy status to other drugs, medicaments and biological substances
CPT/HCPCS: 81001; 84703; 87086; 87210; 87491; 87591; 96372; 99284; J0696